=== PATIENT | male | born 2000 | race Caucasian/White ===

== ENCOUNTER 2023-12-13 17:43 | Emergency (ER) | payer OTHER, SELFPAY ==
[2023-12-13 17:54] VITALS: BP 142/69; PULSE 76; RESP 18; TEMP 36.8; O2SAT 98; BMI 29.3
--- NOTE | 2023-12-13 17:58 | XR_ITS ---
The [address] [address] Patient Name: MARLENE EDDY MRN: [id number] date: 2000 Sex: M Assigned Patient Location: ER Current Patient Location: ER Accession/Order Number: [id number] Exam Date: 12/13/2023 18:11 Report Date: 12/13/2023 18:56 At the request of: MOSES MCMAHAN Procedure: XR elbow LT min 3V Exam: Radiographs: XR elbow LT min 3V Reason for exam: pain Comparison: None XR/XR elbow LT min 3V IMPRESSION: Left elbow effusion. Possible acute nondisplaced radial head fracture. Remainder of the left elbow radiographs is unremarkable. Electronically authenticated by: KIMBERLY ADLER Date: 12/13/2023 18:56
--- NOTE | 2023-12-13 17:58 | XR_ITS ---
The [address] [address] Patient Name: MARLENE EDDY MRN: [id number] date: 2000 Sex: M Assigned Patient Location: ER Current Patient Location: ER Accession/Order Number: [id number] Exam Date: 12/13/2023 18:11 Report Date: 12/13/2023 18:34 At the request of: MOSES MCMAHAN Procedure: XR ankle LT min 3V EXAM: XR ankle LT min 3V HISTORY: pain COMPARISON: None. TECHNIQUE: 3 views of the left ankle were obtained FINDINGS: . A fracture is seen at the base of the fifth metatarsal bone which is minimally displaced. There is no evidence of a fracture or dislocation at the ankle. The mortise is intact. No osteochondral injury is identified. The subtalar joints are intact. Mild soft tissue swelling laterally is noted. XR/XR ankle LT min 3V IMPRESSION: There is a slightly displaced fracture involving the base of the fifth metatarsal bone, which may be acute in nature. There is no other evidence of an acute fracture or dislocation at the ankle. The joint spaces are intact. Soft tissue swelling laterally is noted. Electronically authenticated by: JR KEMP Date: 12/13/2023 18:34
--- NOTE | 2023-12-13 18:12 | XR_ITS ---
The [address] [address] Patient Name: MARLENE EDDY MRN: [id number] date: 2000 Sex: M Assigned Patient Location: ER Current Patient Location: ER Accession/Order Number: [id number] Exam Date: 12/13/2023 18:11 Report Date: 12/13/2023 18:36 At the request of: JEWEL CURTIS Procedure: XR foot LT min 3V EXAM: XR foot LT min 3V HISTORY: injury COMPARISON: None. TECHNIQUE: 3 views of the left foot were obtained. FINDINGS: There is a fracture at the base of the fifth metatarsal bone. There is the proximal fracture fragment is eccentrically displaced a maximum of 3 mm in slightly rotated. There is no other evidence of an acute fracture or dislocation. The joint spaces are otherwise intact. XR/XR foot LT min 3V IMPRESSION: There is a fracture at the base of the fifth metatarsal bone which is slightly displaced and appears acute. There is no other evidence of a fracture dislocation about the foot. Electronically authenticated by: JR KEMP Date: 12/13/2023 18:36
--- NOTE | 2023-12-13 18:36 | ED.GENADUL1 ---
Documented by User: BA Chester 12/13/23 19:27 HPI - General Adult General Chief complaint: Extremity Injury, Lower Stated complaint: Upper/Lower Extremity Injuries Time Seen by Provider: 12/13/23 18:10 Source: patient Mode of arrival: walk-in Limitations: no limitations History of Present Illness HPI narrative: Patient is a 23-year-old male who presents to the emergency department for the evaluation of pain in the left foot and ankle as well as the left elbow. He is a high gym girls tennis coach and states he landed while doing a high jump on an object on the ground and twisted his left ankle. He complains of pain and swelling over the left fifth metatarsal, diffusely over the left ankle and states he fell onto his left elbow. No medications taken prior to arrival. No head injuries or loss of consciousness. He is able to ambulate some Related Data Previous Rx's Medication Instructions Recorded ketorolac 10 mg tablet 10 mg PO TID PRN pain #10 tabs 12/13/23 ondansetron 4 mg disintegrating 4 mg PO Q6H PRN nausea and 12/13/23 tablet vomiting #12 tabs oxycodone-acetaminophen 5 mg-325 1 tab PO Q6H PRN pain 4 days #15 12/13/23 mg tablet (Percocet) tabs Allergies Allergy/AdvReac Type Severity Reaction Status Date / Time No Known Drug Allergies Allergy Verified 12/13/23 17:54 Review of Systems ROS Constitutional Denies: fever or chills Ears, nose, mouth, and throat Denies: throat pain or nasal congestion Cardiovascular Denies: chest pain Respiratory Denies: shortness of breath Gastrointestinal Denies: nausea or vomiting Musculoskeletal Reports: extremity pain; Denies: back pain or neck pain Integumentary/Breast Denies: rash Neurological Denies: headache Endocrine Denies: excessive urination Hematologic/Lymphatic Denies: easy bruising or easy bleeding Exam Narrative Exam Narrative: Gen.: Awake, alert, in no distress Head: Normocephalic, atraumatic ENT: Moist mucous membranes Respiratory: No respiratory distress Extremities: Left foot and ankle with diffuse edema, ecchymosis and tenderness at the base of the left fifth metatarsal and left ankle with no obvious deformity. Normal flexion and extension of the toes of the left foot. 2+ left DP pulse. Limited extension of the left elbow with no obvious deformity or bony point tenderness over the olecranon. Normal certified medical coder strength in the left hand, 2+ left radial pulse Psych: Normal mood and affect Neuro: No focal neuro deficit Skin: Warm, dry, intact Constitutional Vital Signs, click to edit/add: Last Vital Signs Temp 98.2 F 12/13/23 17:54 Pulse 76 12/13/23 17:54 Resp 18 12/13/23 17:54 BP 142/69 H 12/13/23 17:54 Pulse Ox 98 12/13/23 17:54 Course Vital Signs Vital signs: Vital Signs Temperature 98.2 F 12/13/23 17:54 Pulse Rate 76 12/13/23 17:54 Respiratory Rate 18 12/13/23 17:54 Blood Pressure 142/69 H 12/13/23 17:54 Pulse Oximetry 98 12/13/23 17:54 Temperature 98.2 F 12/13/23 17:54 Pulse Rate 76 12/13/23 17:54 Respiratory Rate 18 12/13/23 17:54 Blood Pressure 142/69 H 12/13/23 17:54 Pulse Oximetry 98 12/13/23 17:54 Medical Decision Making MDM Narrative Medical decision making narrative: X-rays of the left foot, ankle, elbow with joint effusion in the elbow concerning for occult radial head fracture as well as fracture of the left fifth metatarsal. Patient placed in a Garcia dressing with postop shoe, left posterior splint and slingHe remains neurovascularly intact. Rest, ice, elevate. Follow-up orthopedics and return to the ER if symptoms change or worsen. I did prescribe pain medication, NSAIDs and a walker for the patient if he has any difficulty with his ambulation. He does have a boot at home that he may apply if it is more comfortable and he has crutches as well Medical Records Medical records reviewed: Yes I reviewed the patient's medical records Imaging Data XR foot: Attestation: I have reviewed the pertinent imaging results. Radiologist's impression: ITS Impressions Ankle X-Ray 12/13/23 17:58 IMPRESSION: There is a slightly displaced fracture involving the base of the fifth metatarsal bone, which may be acute in nature. There is no other evidence of an acute fracture or dislocation at the ankle. The joint spaces are intact. Soft tissue swelling laterally is noted. Electronically authenticated by: JR KEMP Date: 12/13/2023 18:34 Elbow X-Ray 12/13/23 17:58 IMPRESSION: Left elbow effusion. Possible acute nondisplaced radial head fracture. Remainder of the left elbow radiographs is unremarkable. Electronically authenticated by: KIMBERLY ADLER Date: 12/13/2023 18:56 Foot X-Ray 12/13/23 18:12 IMPRESSION: There is a fracture at the base of the fifth metatarsal bone which is slightly displaced and appears acute. There is no other evidence of a fracture dislocation about the foot. Electronically authenticated by: JR KEMP Date: 12/13/2023 18:36 Discharge Plan Discharge Chief Complaint: Extremity Injury, Lower Clinical Impression: Fracture of fifth metatarsal bone of left foot, Left elbow fracture Patient Disposition: Home, Self-Care Time of Disposition Decision: 19:18 Condition: Good Prescriptions / Home Meds: New ketorolac 10 mg tablet 10 mg PO TID PRN (Reason: pain) Qty: 10 0RF oxycodone-acetaminophen [Percocet] 5-325 mg tablet 1 tab PO Q6H PRN (Reason: pain) 4 Days Qty: 15 0RF Rx Instructions: DX: M79.672 ondansetron 4 mg tablet,disintegrating 4 mg PO Q6H PRN (Reason: nausea and vomiting) Qty: 12 0RF Instructions: Elbow Fracture (ED), Foot Fracture in Adults (ED) Referrals: SPENSER ANDRADE [Primary Care Provider] - 1 week Marco Salvador MD [Physician] - 1 week Discharge Date/Time: 12/13/23 19:38 Stand Alone Forms: Portal Instructions Documented by User: Will Cueto MD 12/13/23 20:10 HPI - General Adult General Chief complaint: Extremity Injury, Lower Stated complaint: Upper/Lower Extremity Injuries Time Seen by Provider: 12/13/23 18:10 Related Data Previous Rx's Medication Instructions Recorded ketorolac 10 mg tablet 10 mg PO TID PRN pain #10 tabs 12/13/23 ondansetron 4 mg disintegrating 4 mg PO Q6H PRN nausea and 12/13/23 tablet vomiting #12 tabs oxycodone-acetaminophen 5 mg-325 1 tab PO Q6H PRN pain 4 days #15 12/13/23 mg tablet (Percocet) tabs Allergies Allergy/AdvReac Type Severity Reaction Status Date / Time No Known Drug Allergies Allergy Verified 12/13/23 17:54 Exam Constitutional Vital Signs, click to edit/add: Last Vital Signs Temp 98.2 F 12/13/23 17:54 Pulse 76 12/13/23 17:54 Resp 18 12/13/23 17:54 BP 142/69 H 12/13/23 17:54 Pulse Ox 98 12/13/23 17:54 Course Vital Signs Vital signs: Vital Signs Temperature 98.2 F 12/13/23 17:54 Pulse Rate 76 12/13/23 17:54 Respiratory Rate 18 12/13/23 17:54 Blood Pressure 142/69 H 12/13/23 17:54 Pulse Oximetry 98 12/13/23 17:54 Temperature 98.2 F 12/13/23 17:54 Pulse Rate 76 12/13/23 17:54 Respiratory Rate 18 12/13/23 17:54 Blood Pressure 142/69 H 12/13/23 17:54 Pulse Oximetry 98 12/13/23 17:54 Medical Decision Making MDM Narrative Medical decision making narrative: X-rays of the left foot, ankle, elbow with joint effusion in the elbow concerning for occult radial head fracture as well as fracture of the left fifth metatarsal. Patient placed in a Garcia dressing with postop shoe, left posterior splint and sling. He remains neurovascularly intact. Rest, ice, elevate. Follow-up orthopedics and return to the ER if symptoms change or worsen. I did prescribe pain medication, NSAIDs and a walker for the patient if he has any difficulty with his ambulation. He does have a boot at home that he may apply if it is more comfortable and he has crutches as well I, Dr Cueto, have reviewed the above progress note and course of action in the ER; agree with the above. I have personally seen and evaluated this patient, gone over history and physical, and discussed disposition and treatment plan with the patient. Imaging Data XR foot: Radiologist's impression: ITS Impressions Ankle X-Ray 12/13/23 17:58 IMPRESSION: There is a slightly displaced fracture involving the base of the fifth metatarsal bone, which may be acute in nature. There is no other evidence of an acute fracture or dislocation at the ankle. The joint spaces are intact. Soft tissue swelling laterally is noted. Electronically authenticated by: JR KEMP Date: 12/13/2023 18:34 Elbow X-Ray 12/13/23 17:58 IMPRESSION: Left elbow effusion. Possible acute nondisplaced radial head fracture. Remainder of the left elbow radiographs is unremarkable. Electronically authenticated by: KIMBERLY ADLER Date: 12/13/2023 18:56 Foot X-Ray 12/13/23 18:12 IMPRESSION: There is a fracture at the base of the fifth metatarsal bone which is slightly displaced and appears acute. There is no other evidence of a fracture dislocation about the foot. Electronically authenticated by: JR KEMP Date: 12/13/2023 18:36 Discharge Plan Discharge Chief Complaint: Extremity Injury, Lower Clinical Impression: Fracture of fifth metatarsal bone of left foot, Left elbow fracture Patient Disposition: Home, Self-Care Time of Disposition Decision: 19:18 Condition: Good Prescriptions / Home Meds: New ketorolac 10 mg tablet 10 mg PO TID PRN (Reason: pain) Qty: 10 0RF oxycodone-acetaminophen [Percocet] 5-325 mg tablet 1 tab PO Q6H PRN (Reason: pain) 4 Days Qty: 15 0RF Rx Instructions: DX: M79.672 ondansetron 4 mg tablet,disintegrating 4 mg PO Q6H PRN (Reason: nausea and vomiting) Qty: 12 0RF Instructions: Elbow Fracture (ED), Foot Fracture in Adults (ED) Referrals: SPENSER ANDRADE [Primary Care Provider] - 1 week Mraco Salvador MD [Physician] - 1 week Discharge Date/Time: 12/13/23 19:38 Stand Alone Forms: Portal Instructions
[2023-12-13] MEDS: OXYCODONE HCL/ACETAMINOPHEN 5MG/325MG 1 TAB PO (18:45)
== END 2023-12-13 19:38 | disposition home or self-care (01) ==
PROVIDERS: Emergency Provider Emergency Medicine; PCP Family Medicine
DX: S52.102A Unspecified fracture of upper end of left radius, initial encounter for closed fracture (principal); S92.352A Displaced fracture of fifth metatarsal bone, left foot, initial encounter for closed fracture; X50.1XXA Overexertion from prolonged static or awkward postures, initial encounter
CPT/HCPCS: 29105; 29505; 73080; 73610; 73630; 99284

== ENCOUNTER 2023-12-25 10:30 | Outpatient (OUT) | payer OTHER, SELFPAY ==
--- NOTE | 2023-12-25 | XR_ITS ---
The [address] [address] Patient Name: MARLENE EDDY MRN: [id number] date: 2000 Sex: M Assigned Patient Location: Current Patient Location: Accession/Order Number: [id number] Exam Date: 12/25/2023 10:57 Report Date: 12/25/2023 13:50 At the request of: JAY HOUGH Procedure: XR foot LT min 3V PROCEDURE: XR foot LT min 3V COMPARISON: 12/13/2023 HISTORY: LEFT FOOT PAIN FINDINGS: BONES:Stable transverse intra-articular fracture base of fifth metatarsal with distraction up to 3 mm. No significant bone formation or periosteal reaction. SOFT TISSUES:Negative. No visible soft tissue swelling. EFFUSION:None visible. OTHER: Negative. XR/XR foot LT min 3V IMPRESSION: Stable healing intra-articular fracture base of fifth metatarsal with no sclerotic healing observed Electronically authenticated by: ADRIAN ASENCIO Date: 12/25/2023 13:50
--- NOTE | 2023-12-25 | XR_ITS ---
The [address] [address] Patient Name: MARLENE EDDY MRN: [id number] date: 2000 Sex: M Assigned Patient Location: Current Patient Location: Accession/Order Number: [id number] Exam Date: 12/25/2023 10:57 Report Date: 12/25/2023 14:48 At the request of: JAY HOUGH Procedure: XR elbow LT min 3V PROCEDURE: XR elbow LT min 3V DATE: 12/25/2023 9:57 AM CDT COMPARISONS: 12/13/2023 CLINICAL INDICATION: LEFT ELBOW PAIN FINDINGS: Again there is evidence of left elbow joint effusion. There is however no clear evidence of fracture on these images. Occult radial head fracture remains the likely etiology for the joint effusion.. XR/XR elbow LT min 3V IMPRESSION: 1. Presence of an elbow joint effusion 2. Probable occult radial head fracture. Electronically authenticated by: REGINE DOUGLAS Date: 12/25/2023 14:48
--- OUTSIDE RECORDS SUMMARY | 2023-12-25 10:39 | XMS_ITS | CCD ---
Author Name Unknown Address [address] [place] [address] [place] [address] Organization [facility] Care Team Providers Care Christian Counselor Name Role Phone LUPE, DR DUEÑSA Attending Unavailable LUPE, DR DUEÑAS Consulting Unavailable LUPE, DR DUEÑAS Admitting Unavailable Problems Active Problems Problem Classification Problem Date Documented Da te Episodic/Chronic Unclassified (2 sources) CONTACT W/AND (SUSP) EXPOS COVID-19; Translations: [CONTACT W/AND (SUSP) EXPOS COVID-19] Onset: 03-03-2022 Viral infection (1 source) COVID-19; Translations: [COVID-19] Onset: 03-03-2022 Past or Other Problems Problem Classification Problem Date Documented Da te Episodic/Chronic Unclassified (1 source) CONTACT W/AND (SUSP) EXPOS COVID-19; Translations: [CONTACT W/AND (SUSP) EXPOS COVID-19] Onset: 02-28-2022 Results Test Name Value Interpretation Reference Range Facil ity Covid-19 PCR (CVDTBH)on 02-07 SARS-CoV-2 (COVID-19) RNA CHAZ+probe Ql (Unsp spec) Detected Critically abnormal NOT DETECTED The [facility] Comment on above: Result Comment: This test is not yet yuly roved or cleared by the [place] FDA. When there are no FDA-approved or cleared tests available, and other criteria are met, FDA can make tests available under an emergency access mechanism called an Emergency Use Authorization (EUA). The EUA for this test is supported by the Locomotive Operator of Health and Human Service's (HHS's) declaration that circumstances exist to justify the emergency use of in vitro diagnostics for the detection and/or diagnosis of the virus that causes COVID-19. This EUA will remain in effect (meaning this test can be used) for the duration of the COVID-19 declaration justifying emergency of IVDs, unless it is terminated or revoked by FDA (after which the test may no longer be used). Performed By: #### C [facility] #### [facility] [address] [place], [place] [address] Dr. Aruna Bailon Encounters Encounter Date Encounter Type Care Provider Facility Start: 02-28-2022 End: 02-28-[address] SPENSER ANDRADE Facility: Payers Date Payer Category Payer Unknown [id number] 1959 Unknown [id number] Summary Purpose Family History No Family History Records Found Advance Directives No Advanced Directives Records Found Additional Source Comments (unrecognized sect ion and content) No Status Records Found INFORMATION SOURCE (unrecogn ized section and content) DATE CREATED AUTHOR 03/04/[address] [facility] FOR RECORDS PERTAINING TO PATIENTS WHO ARE OR HAVE BEEN ENROLLED IN A CHEMICAL DEPENDENCY/SUBSTANCEABUSE PROGRAM, SOME INFORMATION MAY BE OMITTED. This clinical summary was aggregated from multiple sources. Caution should be exercised in using it in the provision of clinical care. This summary normalizes information from multiple sources, and as a consequence, information in this document may materially change the coding, format and clinical context of patient data. In addition, data may be omitted in some cases. CLINICAL DECISIONS SHOULD BE BASED ON THE PRIMARY CLINICAL RECORDS. [facility] [employer] provides no warranty or guarantee of the accuracy or completeness of information in this document.
== END 2023-12-25 10:31 | disposition home or self-care (01) ==
LOC: EC 10:30
PROVIDERS: PCP Family Medicine; Visit Provider Orthopaedic Surgery
DX: S52.125D Nondisplaced fracture of head of left radius, subsequent encounter for closed fracture with routine healing (principal); S92.355D Nondisplaced fracture of fifth metatarsal bone, left foot, subsequent encounter for fracture with routine healing
CPT/HCPCS: 73080; 73630

== ENCOUNTER 2024-01-22 09:49 | Outpatient (OUT) | payer OTHER, SELFPAY ==
--- NOTE | 2024-01-22 | XR_ITS ---
The [address] [address] Patient Name: MARLENE EDDY MRN: [id number] date: 2000 Sex: M Assigned Patient Location: Current Patient Location: Accession/Order Number: [id number] Exam Date: 01/22/2024 09:52 Report Date: 01/22/2024 14:23 At the request of: JAY HOUGH Procedure: XR foot LT min 3V PROCEDURE: XR foot LT min 3V COMPARISON: 12/25/2023 HISTORY: LEFT FOOT PAIN FINDINGS: BONES:Multiple transverse intra-articular fracture base of the fifth metatarsal. Minimal bony bridging along the medial aspect. No new fracture. No dislocation. SOFT TISSUES:Lateral foot soft tissue swelling EFFUSION:None visible. OTHER: Negative. XR/XR foot LT min 3V IMPRESSION: Stable intra-articular fracture base of fifth metatarsal with minimal interval healing Electronically authenticated by: ADRIAN ASENCIO Date: 01/22/2024 14:23
--- NOTE | 2024-01-22 | XR_ITS ---
The [address] [address] Patient Name: MARLENE EDDY MRN: [id number] date: 2000 Sex: M Assigned Patient Location: Current Patient Location: Accession/Order Number: [id number] Exam Date: 01/22/2024 09:52 Report Date: 01/23/2024 09:08 At the request of: JAY HOUGH Procedure: XR elbow LT min 3V PROCEDURE: XR elbow LT min 3V COMPARISON: 12/25/2023 HISTORY: LEFT ELBOW PAIN FINDINGS: BONES:Transverse and sclerosis of the proximal radial metaphysis consistent with a healing nondisplaced fracture. No additional fracture or dislocation. SOFT TISSUES:Negative. No visible soft tissue swelling. EFFUSION:Small elbow joint effusion with displacement of the fat pads OTHER: Negative. XR/XR elbow LT min 3V IMPRESSION: Subacute healing nondisplaced fracture radial head metaphysis Electronically authenticated by: ADRIAN ASENCIO Date: 01/23/2024 09:08
--- OUTSIDE RECORDS SUMMARY | 2024-01-22 10:12 | XMS_ITS | CCD ---
Author Organization [facility] Care Team Providers Care Wafer Substrate Tester Name Role Phone LUPE, DR DUEÑAS Attending Unavailable LUPE, DR DUEÑAS Consulting Unavailable [...] spec) Detected Critically abnormal NOT DETECTED The [facility] Comment on above: Result Comment: This test is not yet yuly roved or cleared by the [place] FDA. When there are no FDA-approved or cleared tests available, and other criteria are met, FDA can make tests available under an emergency access mechanism called an Emergency Use Authorization (EUA). The EUA for this test is supported by the Egan of Health and Human Service's (HHS's) declaration [...] longer be used). Performed By: #### C [facility] #### [facility] [id number] Aruna Bailon Encounters Encounter Date Encounter Type Care Provider Facility Start: 02-28-2022 End: 02-28-[address] SPENSER ANDRADE Facility:[facility] Payers Date Payer Category Payer Unknown [id number] 1959 Unknown [id number] Summary Purpose Family History No Family History Records Found Advance Directives No Advanced Directives Records Found Additional Source Comments (unrecognized sect ion and content) No Status Records Found INFORMATION SOURCE (unrecogn ized section and content) DATE CREATED AUTHOR 03/04/2022 The [facility] FOR RECORDS PERTAINING TO PATIENTS WHO ARE [...] BE BASED ON THE PRIMARY CLINICAL RECORDS. [facility] [employer] provides no warranty or guarantee of the accuracy or completeness of information in this document.
== END 2024-01-22 09:50 | disposition home or self-care (01) ==
PROVIDERS: PCP Family Medicine; Visit Provider Orthopaedic Surgery
DX: S52.125D Nondisplaced fracture of head of left radius, subsequent encounter for closed fracture with routine healing (principal); S92.352D Displaced fracture of fifth metatarsal bone, left foot, subsequent encounter for fracture with routine healing
CPT/HCPCS: 73080; 73630

== ENCOUNTER 2024-03-18 09:21 | Outpatient (OUT) | payer OTHER, SELFPAY ==
--- NOTE | 2024-03-18 | XR_ITS ---
[address] [address] Patient Name: MARLENE EDDY MRN: [id number] date: 2000 Sex: M Assigned Patient Location: Current Patient Location: Accession/Order Number: [id number] Exam Date: 03/18/2024 09:27 Report Date: 03/18/2024 09:50 At the request of: JAY HOUGH Procedure: XR foot LT min 3V PROCEDURE: XR foot LT min 3V COMPARISON: 01/22/2024 HISTORY: LEFT FOOT PAIN FINDINGS: BONES:Stable transverse intra-articular fracture base of the fifth metatarsal with no significant bony bridging SOFT TISSUES:Negative. No visible soft tissue swelling. EFFUSION:None visible. OTHER: Negative. XR/XR foot LT min 3V IMPRESSION: Nonunion of a stable intra-articular transverse fracture base of fifth metatarsal Electronically authenticated by: ADRIAN ASENCIO Date: 03/18/2024 09:50
--- NOTE | 2024-03-18 | XR_ITS ---
The [address] [address] Patient Name: MARLENE EDDY MRN: [id number] date: 2000 Sex: M Assigned Patient Location: Current Patient Location: Accession/Order Number: [id number] Exam Date: 03/18/2024 09:50 Report Date: 03/19/2024 07:01 At the request of: JAY HOUGH Procedure: XR elbow LT min 3V PROCEDURE: XR elbow LT min 3V COMPARISON: 01/22/2024 HISTORY: LEFT ELBOW PAIN FINDINGS: BONES:Again demonstrated is minimal sclerosis along the radial head likely representing a healing fracture SOFT TISSUES:Negative. No visible soft tissue swelling. EFFUSION:None visible. OTHER: Negative. XR/XR elbow LT min 3V IMPRESSION: Stable healing radial head fracture Electronically authenticated by: ADRIAN ASENCIO Date: 03/19/2024 07:01
--- OUTSIDE RECORDS SUMMARY | 2024-03-18 09:25 | XMS_ITS | CCD ---
Author Organization [facility] Care Team Providers Care Diagnostic Sales Specialist Name Role Phone LUPE, DR DUEÑAS Attending [...] spec) Detected Critically abnormal NOT DETECTED [facility] Comment on above: Result Comment: This test is not yet yuly roved or cleared by the [place] FDA. When there are no FDA-approved or cleared tests available, and other criteria are met, FDA can make tests available under an emergency access mechanism called an Emergency Use Authorization (EUA). The EUA for this test is supported by the [place] of Health and Human Service's (HHS's) declaration [...] longer be used). Performed By: #### [facility] #### [facility] [id number] Aruna Bailon Encounters Encounter Date Encounter Type Care Provider Facility Start: 02-28-2022 End: 02-28-[address] SPENSER ANDRADE Facility:[facility] Payers Date Payer Category Payer Unknown [id number] 1959 Unknown [id number] Summary Purpose Family History No Family History Records Found Advance Directives No Advanced Directives Records Found Additional Source Comments (unrecognized sect ion and content) No Status Records Found INFORMATION SOURCE (unrecogn ized section and content) DATE CREATED AUTHOR 03/04/2022 [facility] FOR RECORDS PERTAINING TO PATIENTS WHO [...] BE BASED ON THE PRIMARY CLINICAL RECORDS. [employer] provides no warranty or guarantee of the accuracy or completeness of information in this document.
== END 2024-03-18 09:22 | disposition home or self-care (01) ==
LOC: EC 09:21
PROVIDERS: PCP Family Medicine; Visit Provider Orthopaedic Surgery
DX: S92.352D Displaced fracture of fifth metatarsal bone, left foot, subsequent encounter for fracture with routine healing (principal); S52.125D Nondisplaced fracture of head of left radius, subsequent encounter for closed fracture with routine healing
CPT/HCPCS: 73080; 73630